=== PATIENT | female | born 1995 | race Caucasian/White ===

== ENCOUNTER 2017-04-29 21:41 | Emergency (ER) | payer BC ==
[2017-04-29 21:51] VITALS: BP 97/82; PULSE 98; RESP 18; TEMP 99.3; O2SAT 100
[2017-04-29] MEDS ORDERED: ACETAMINOPHEN 500 MG TAB PO ONE (22:01)
--- NOTE | 2017-04-29 22:05 | EDPHY ---
H & P Stated Complaint: left shoulder injury HPI/ROS: HPI CHIEF COMPLAINT: Left shoulder pain status post mechanical trip and fall, alcohol intoxication HISTORY OF PRESENT ILLNESS: This patient 21-year-old female otherwise healthy no significant medical history she presents emergency room after she fell in the parking lot of the stadium in [facility]. She landed on her left shoulder. She was intoxicated. She had multiple shots of liquor. She denies any other injuries. She continues to have left shoulder pain. She presents emergency room by private vehicle. She has full range of motion of her left shoulder. Axillary nerve is intact. Neurovascular intact. Good radial pulse. Good cap refill. Complaining of AC joint pain. Worse with range of motion. 02/05. Past Medical History: No significant medical history Past Surgical History: No significant surgical history Social History: [employer] student, admits to alcohol this evening , denies illicit drug use. Family History: Noncontributory. ROS REVIEW OF SYSTEMS: A comprehensive 10 point review of systems is otherwise negative aside from elements mentioned in the history of present illness. Exam Constitutional smells of alcohol, triage nursing summary reviewed, vital signs reviewed, awake/alert. Eyes normal conjunctivae and sclera, EOMI, PERRLA. HENT normal inspection, atraumatic, moist mucus membranes, no epistaxis, neck supple/ no meningismus, no raccoon eyes. Respiratory clear to auscultation bilaterally, normal breath sounds, no respiratory distress, no wheezing. Cardiovascular rate normal, regular rhythm, no murmur, no edema, distal pulses normal. Gastrointestinal soft, non-tender, no rebound, no guarding, normal bowel sounds, no distension, no pulsatile mass. Genitourinary no CVA tenderness. Musculoskeletal left arm: Neurovascular intact good radials, good cap refill, good sensation. Axillary nerve intact. Full motion of left shoulder. Tender palpation over the AC joint. no midline vertebral tenderness, full range of motion, no calf swelling, no tenderness of extremities, no meningismus, good pulses, neurovascularly intact. Skin pink, warm, & dry, no rash, skin atraumatic. Neurologic awake, alert and oriented x 3, AAOx3, moves all 4 extremities equally, motor intact, sensory intact, CN II-XII intact, normal cerebellar, normal vision, normal speech. Psychiatric normal mood/affect. Heme/Lymph/Immune no lymphadenopathy. Differential Diagnosis: Includes but is not limited to in a particular order AC joint separation, clavicle fracture, shoulder fracture, dislocation, shoulder contusion, musculoskeletal strain. Medical Decision Making: Plan for this patient x-ray left shoulder, ice pack, sling, Tylenol as she is allergic to ibuprofen. Re-evaluation: ED x-ray left shoulder: Shows AC joint separation. No fracture. Interpreted by myself. Patient has been given a sling, ice pack, anti-inflammatory pain medicine. Understands follow-up with Orthopedics. Stay and sling for comfort. Take anti- inflammatory pain medicine. Ice her shoulder next 24-48 p.m. forty eight hours. Source: Patient - Personal History LMP (Females 10-55): Extended Cycle BCP/Inj Current Tetanus Diphtheria and Acellular Pertussis (TDAP): Yes - Medical/Surgical History Hx Asthma: No Hx Chronic Respiratory Disease: No Hx Diabetes: No Hx Cardiac Disease: No Hx Renal Disease: No Hx Cirrhosis: No Hx Alcoholism: No Hx HIV/AIDS: No Hx Splenectomy or Spleen Trauma: No Other PMH: denies - Social History Smoking Status: Never smoked Constitutional: Initial Vital Signs Temperature (C) 37.4 C 04/29/17 21:48 Heart Rate 98 04/29/17 21:48 Respiratory Rate 18 04/29/17 21:48 Blood Pressure 97/82 H 04/29/17 21:48 O2 Sat (%) 100 04/29/17 21:48 O2 Delivery Mode Room Air Allergies/Adverse Reactions: ibuprofen Allergy (Verified 04/29/17 21:48) Home Medications: Medication Instructions Recorded NK [No Known Home Meds] 04/29/17 Medical Decision Making - Data Points Medications Given: Discontinued Medications Acetaminophen (Tylenol) 1,000 mg PO EDNOW ONE Stop: 04/29/17 22:02 Last Admin: 04/29/17 22:13 Dose: 1,000 mg Departure - Departure Disposition: Home, Routine, Self-Care Clinical Impression: Acromioclavicular joint separation Qualifiers: Encounter type: initial encounter Laterality: left Qualified Code(s): S43.102A - Unspecified dislocation of left acromioclavicular joint, initial encounter Condition: Good Instructions: Acromioclavicular Separation (ED) Additional Instructions: 1. Ice her shoulder for the next 24-48 hours. 2. Take Tylenol for pain control. 3. stay in your sling for comfort. 4. Follow up with Orthopedics. Referrals: David Ayers MD [Medical Doctor] - As per Instructions
== END 2017-04-29 22:39 | disposition home or self-care (01) ==
DX: S43.102A Unspecified dislocation of left acromioclavicular joint, initial encounter (principal); W01.0XXA Fall on same level from slipping, tripping and stumbling without subsequent striking against object, initial encounter; Y92.481 Parking lot as the place of occurrence of the external cause
CPT/HCPCS: A4565